=== PATIENT | female | born 1940 | race Caucasian/White ===

== ENCOUNTER → 2016-03-30 | Outpatient (CLI) | payer MEDICARE ==
--- NOTE | 2016-03-30 10:38 | RAD ---
MR LUMBAR SPINE HISTORY:NO PRIORS...PT C/O CHRONIC LBP...HX BREAST CAReason: / Spl. Instructions: / History: COMPARISON: None Technique: Sagittal T2, sagittal STIR, and sagittal T1-weighted images were obtained. Additional axial T1 and T2 weighted imaging was also performed. FINDINGS: Alignment and curvature are within normal limits. There is no compression fracture or deformity. Overall bone marrow signal is within normal limits. The conus base normally at the level of L1-L2 visualized intra-abdominal contents demonstrates hepatic cysts and all numerous renal cysts there is ectasia of the abdominal aorta without aneurysmal dilatation. At L5-S1 there is no spinal stenosis. At L4-L5 there is advanced disc height loss with endplate sclerosis. There is osteophytic encroachment of the foramina causing mild to moderate bilateral foraminal stenosis. At L3-L4 there is no spinal stenosis. At L2-L3 there is no spinal stenosis. At L1-L2 there is a small disc extrusion with some superior migration but this does not cause spinal stenosis. Impression: - Degenerative disc disease greatest at L4-L5 where there is [id number] contact with sclerotic degenerative endplate change. There is also mild to moderate bilateral foraminal stenosis. Correlate for possible L4 radiculopathy. - There is a superiorly migrating small disc extrusion at the level of L1-L2 but this does not cause significant spinal stenosis. - Numerous hepatic and renal cysts this could possibly represent sequelae of autosomal dominant polycystic kidney disease. Electronically signed by: Morgan Gramajo (Mar 30, 2016 10:37:34)
== END | disposition home or self-care (01) ==
LOC: MRI 08:33
PROVIDERS: ATTEND Family Medicine
DX: M51.36 Other intervertebral disc degeneration, lumbar region (principal)
CPT/HCPCS: 72148